=== PATIENT | female | born 1970 | race Caucasian/White ===

== ENCOUNTER 2023-03-04 16:02 | Emergency (ER) | payer BC ==
[~2023-03-04] VITALS: Ht 177.8 cm; Wt 127.3 kg
[~2023-03-04 16:02] MED LIST: CYCL-1 PO; IBUP-1984 PO; IBUP-814 PO; NO HOME MEDS
[2023-03-04 16:39] VITALS: BP 122/73; PULSE 69; RESP 20; TEMP 98.4; O2SAT 98
[2023-03-04] MEDS ORDERED: ROBDML PO (18:50)
[2023-03-04] MEDS ORDERED: BENZ-38 PO (18:50)
[2023-03-04] MEDS ORDERED: IBUP-1984 PO (18:50)
== END 2023-03-04 19:50 | disposition home or self-care (01) ==
LOC: ER 16:04
DX: J10.1 Influenza due to other identified influenza virus with other respiratory manifestations (principal); Z20.822 Contact with and (suspected) exposure to COVID-19; Z90.49 Acquired absence of other specified parts of digestive tract; Z98.51 Tubal ligation status; Z79.899 Other long term (current) drug therapy; Z91.041 Radiographic dye allergy status; Z88.8 Allergy status to other drugs, medicaments and biological substances
CPT/HCPCS: 36415; 71045; 87502; 87503; 87811; 99284

== ENCOUNTER 2024-12-24 15:12 | Emergency (ER) | payer BC ==
[~2024-12-24] VITALS: Ht 177.8 cm; Wt 112.9 kg
[2024-12-24 15:29] VITALS: TEMP 96.9
--- NOTE | 2024-12-24 15:35 | Physician Documentation ---
History of Present Illness Chief Complaint: See Chief Complaint Stated Complaint: DIZZINESS Primary Medical Doctor: None HPI Is a very pleasant 54-year-old female that presents to the emergency department for a nondescript complaints of feeling that floaty feeling right before you ar e going to go to sleep. Patient denies any neurological symptoms at this time no numbness tingling mentation changes issues with cognition other than not feeling as focused at work. Patient has no bilateral unilateral deficits. Patient reports seeing him for history of cluster headaches and migraines. Reports that she has had intermittent headaches over the course of the last 6 days accompanied the feeling of floating. No fever chills nausea vomiting diarrhea chest pain shortness of breath or any other symptoms reported at this time. Medication Reconciliation Allergies: Coded Allergies: iodine (Verified Allergy, Severe, anaphylaxis, 12/24/24) tramadol HCl (Verified Allergy, Severe, seizures, 12/24/24) acetaminophen (Verified Allergy, Intermediate, 12/24/24) ADDITIVE IN PM ONLY -- CAN TAKE REGULAR TYLENOL diphenhydramine (Verified Allergy, Intermediate, 12/24/24) ADDITIVE IN PM ONLY -- CAN TAKE REGULAR TYLENOL Scheduled Ibuprofen (Motrin), 600 MG PO Q8H Ibuprofen* (Motrin*), 1-2 TAB PO Q8H Scheduled PRN Cyclobenzaprine* (Cyclobenzaprine*), 1 TABLET PO Q8H PRN for muscle spasms Miscellaneous Medications Home Med List (No Home Medications), (Reported) Past Medical History Past Medical History: *GI/HEPATOBILIARY*, Anxiety, Bipolar, Depression Past Surgical History: cholecystectomy, tubal ligation Other Past Family History: NONCONTRIBUTORY Alcohol Use: None Drug Use: none Lives with: Family Lives In: Home Occupation: employed Review of Systems All Other Systems at this time: Reviewed and Negative ROS As stated above in the HPI, otherwise all systems are reviewed and negative. Physical Exam Vital Signs: Temperature: 96.9, Source: Temporal, Heart Rate: 68, Respiratory Rate: 16, BP: 153/78, Pulse Oximetry: 98, Weight: 112.900 Oxygen Flow Rate: 0 Physical Exam General: Alert, no apparent distress. Respiratory: Lungs clear, no respiratory distress. Cardiovascular: Regular rate and rhythm, no murmurs. Gastrointestinal: Soft, nontender, nondistended. Bowels sounds present. Neurologic: Oriented x4. Psychiatric: Normal mood and affect. Skin: Normal color, warm and dry. No edema, no ecchymosis. Progress Results/Orders Results/Orders Vital Signs 12/24/24 15:29 Temp 96.9 Pulse 68 Resp 16 B/P (MAP) 153/78 Pulse Ox 98 O2 Flow Rate 0 Medical Decision Making Additional information obtaine: old records Findings Patient presented with nonspecific symptoms and general malaise for the last few days. Her labs are fine show no signs of infection her urine was negative for UTI. I suspect she is working through a viral illness especially based on the timeline. She has remained stable with good vitals throughout her stay in the ED at this time I am going to discharge her for outpatient Differential Dx:Considerations: Bowel obstruction, Cholelithasis, Constipation, Esophagitis, PID, Urinary tract infection Departure Disposition: HOME / SELF CARE / HOMELESS Impression: Primary Impression: Illness Condition: Stable Discharge Instructions: Viral Illness, Adult Referrals: NO PRIMARY CARE PROVIDER (PCP) СВЕТЛАНА MOYA Dec 24, 2024 15:35 ALIZA MARC CORROSION PREVENTION [employer] Dec 24, 2024 18:04
[2024-12-24 17:11] LABS: LEUKOCYTE ESTERASE ,URINE NEGATIVE (Neg); NITRITES, URINE NEGATIVE (Neg); OCCULT BLOOD,URINE NEGATIVE (Neg)
[2024-12-24 17:16] LABS: UA COLLECTION TYPE CLN CATCH MIDSTREAM
[2024-12-24 17:18] LABS: SQUAMOUS EPITHELIAL CELL,UR MANY /LPF (FEW)
[2024-12-24 17:39] LABS: MEAN PLATELET VOLUME 8.7 FL (7.4-10.4); RED CELL DISTRIBUTION WIDTH 13.6 % (11.5-14.5)
[2024-12-24 17:48] LABS: CREATININE 0.81 MG/DL (0.40-0.90); TOTAL CARBON DIOXIDE 26.8 MMOL/L (24-32); eCRCL 87 ML/MIN; eGFR 74 ML/MIN
[2024-12-24 18:16] VITALS: BP 103/58; PULSE 54; RESP 14; O2SAT 96
== END 2024-12-24 18:18 | disposition home or self-care (01) ==
LOC: ER 15:13
DX: R69 Illness, unspecified (principal); R42 Dizziness and giddiness; R51.9 Headache, unspecified; F31.9 Bipolar disorder, unspecified; F41.9 Anxiety disorder, unspecified; Z90.49 Acquired absence of other specified parts of digestive tract; Z88.6 Allergy status to analgesic agent; Z98.51 Tubal ligation status; Z88.8 Allergy status to other drugs, medicaments and biological substances; Z79.899 Other long term (current) drug therapy
CPT/HCPCS: 36415; 80048; 81001; 85025; 99283